=== PATIENT | male | born 1965 | race Caucasian/White ===

== ENCOUNTER 2024-02-05 07:42 | Inpatient (IN) | payer BC ==
[~2024-02-05] VITALS: Ht 180.3 cm; Wt 113.8 kg
[2024-02-05] MEDS ORDERED: NS 1,000 ML IV SCH ×2 (08:20→15:55)
[2024-02-05] MEDS ORDERED: Ondansetron HCl 2 MG / ML 2ML Vial IV ONE (08:20)
[2024-02-05] MEDS ORDERED: Ketorolac Tromethamine 15mg Vial IV ONE (08:20)
[2024-02-05] MEDS ORDERED: FentaNYL Citrate 50 MCG/ML 2 ML Injection IV ONE (09:00)
[2024-02-05 09:05] LABS: BASOPHILS ABSOLUTE AUTO 0.05 K/mm3 (0.00-0.23); BASOPHILS PERCENT AUTO 0 % (0-2); EOSINOPHILS ABSOLUTE AUTO 0.18 K/mm3 (0.00-0.68); EOSINOPHILS PERCENT AUTO 1 % (0-6); Hematocrit 38.9 % (37.0-53.0); Hemoglobin 13.5 g/dL (13.5-17.5); IMMATURE GRAN ABSOLUTE AUTO 0.09 K/mm3 (0.00-0.10); IMMATURE GRAN PERCENT AUTO 1 % (0-1); LYMPHOCYTES PERCENT AUTO 10 % (21-46); MONOCYTES ABSOLUTE AUTO 1.26 K/mm3 (0.16-1.47); MONOCYTES PERCENT AUTO 7 % (4-13); Mean Corpuscular HGB 30.7 pg (26.0-34.0); Mean Corpuscular HGB Conc 34.7 g/dL (31.5-36.5); Mean Corpuscular Volume 88 fL (80-100); Mean Platelet Volume 9.4 fL (9.1-12.4); NEUTROPHILS ABSOLUTE AUTO 14.59 K/mm3 (1.96-9.15); NEUTROPHILS PERCENT AUTO 81 % (41-73); Platelet Count 217 K/mm3 (150-400); RDW Coefficient Variation 13.4 % (11.7-14.2); RDW Standard Deviation 43.2 fL (35.1-46.3); White Blood Cell Count 17.97 K/mm3 (4.00-11.30)
[2024-02-05 09:52] LABS: Alanine Aminotransfer (ALT/SGP 39 U/L (12-78); Albumin/Globulin Ratio 1.1 (0.8-1.8); Alk Phos 71 U/L (50-136); Anion Gap 10 mmol/L (3-11); Aspartate Aminotrans (AST/SGOT 33 U/L (12-37); Bilirubin, Total 0.5 mg/dL (0.1-1.0); Blood Urea Nitrogen 17 mg/dL (8-24); Bun/Creatinine Ratio 16.7 (12.0-20.0); CO2, Blood 26 mmol/L (21-32); Calcium, Blood 9.1 mg/dL (8.5-10.1); Chloride, Blood 107 mmol/L (98-108); Creatinine, Blood 1.02 mg/dL (0.60-1.20); Globulin, Blood 3.7 g/dL (2.2-4.0); Glomerular Filtration Rate 85 (60-); Glucose, Blood 175 mg/dL (70-99); Potassium, Blood 3.7 mmol/L (3.5-5.5); Sodium, Blood 139 mmol/L (136-145); Total Protein, Blood 7.7 g/dL (6.4-8.2)
[2024-02-05] MEDS ORDERED: HYDROmorphone HCl/Pf 1MG SYR IV ONE ×5 (10:25→14:20)
[2024-02-05] MEDS ORDERED: Methocarbamol750 MG PO (10:51)
[2024-02-05] MEDS ORDERED: IBU800 M1 PO (10:51)
[2024-02-05] MEDS ORDERED: AMLODIPINE BESY10 MG PO (10:51)
[2024-02-05] MEDS ORDERED: OMEP20ER PO (10:52)
[2024-02-05] MEDS ORDERED: TRAZ50 PO (10:52)
[2024-02-05] MEDS ORDERED: ALLO300 PO (10:52)
[2024-02-05] MEDS ORDERED: COLCRYS0.6 M1 PO (10:52)
[2024-02-05] MEDS ORDERED: LOSA50 PO (10:52)
[2024-02-05] MEDS ORDERED: PLAVIX75 MG PO (10:52)
[2024-02-05] MEDS ORDERED: ATENOLOL25 MG PO (10:53)
[2024-02-05] MEDS ORDERED: Lactated Ringer's 1,000 ML IV ONE (11:30)
[2024-02-05] MEDS ORDERED: Methocarbamol 500 MG Tab PO PRN (14:10)
[2024-02-05] MEDS ORDERED: Ketorolac Tromethamine 15mg Vial IV PRN (14:15)
[2024-02-05] MEDS ORDERED: HYDROmorphone HCl/Pf 1MG SYR IV PRN (15:30)
[2024-02-05] MEDS ORDERED: Ondansetron HCl 2 MG / ML 2ML Vial IV PRN (15:35)
[2024-02-05] MEDS ORDERED: Acetaminophen 325 MG TABLET PO PRN (15:35)
[2024-02-05] MEDS ORDERED: Sennosides 8.6 MG Tab PO PRN (15:55)
[2024-02-05 16:03] VITALS: BP 127/89
[2024-02-05 16:13] LABS: Source, Urine Clean Catch
[2024-02-05 16:20] LABS: Appearance, Urine Clear (Clear); Bilirubin, Urine Neg (Neg); Blood, Urine Neg (Neg); Color, Urine Yellow (P-Yellow); Glucose Qualitative, Urine Neg (Neg); Ketones, Urine 1+ (Neg); Leukocyte Esterase, Urine Neg (Neg); Nitrite, Urine Neg (Neg); Protein, Urine 2+ (Neg); Specific Gravity, Urine 1.015 (1.003-1.022); Urobilinogen, Urine NORM (Normal)
--- NOTE | 2024-02-05 16:20 | NUR ---
ADMISSION NOTE MR CALLE WAS ADMITTED TO MEDICAL FROM THE ER AT 1445HRS WITH ACUTE RIGHT SIDED ABDOMINAL PAIN, SHARP IN NATURE. NO NAUSEA ON ADMISSION. HE LIVES WITH HIS , WALKS WITH A CANE WHEN HIS GOUT FLARES UP, HAS 40% HEARING LOSS, HEARING AIDS AT HOME. HE STOOD TO TRANSFER FROM STRETCHER INTO BED AND WAS HESITANT TRANSFERING. PT EDUCATED ON FALL PRECAUTIONS AND USE OF CALL LIGHT, NOT GETTING UP BY HIMSELF WHILE ON HIGH DOSES OF PAIN MEDICATIONS. PT VERBALISED UNDERSTANDING OF FALL PRECAUTIONS. VOIDED INTO URINAL AND URINE SAMPLE SENT TO LAB. DARK YELLOW URINE. IVF STARTED AT 75CC/HR. PT HAS HX COPD, DOES NOT USE OXYGEN AT HOME, QUIT SMOKING MANY YEARS AGO. BED LOW, CALL LIGHT IN REACH.
[2024-02-05 16:27] LABS: Bacteria Rare /hpf; Hyaline Casts 0-2 /lpf (0-2); Red Blood Cells, Urine 0-2 /hpf (0-2); Squamous Epithelial Cells Rare /hpf (Few); White Blood Cells, Urine 0-2 /hpf (0-5)
--- NOTE | 2024-02-05 18:10 | NUR ---
SHIFT SUMMARY PAIN ACROSS RIGHT ABDOMEN, HELPED A LITTLE WITH DILAUDID AND TOLADOL. NO NAUSEA. DRANK SIPS OF WATER BUT NOTICED INCREASED PAIN AFTER DRINKING. AMBULATED TO BR, REPORTED THAT IT'S TOO PAINFUL TO PUSH TO HAVE BM.
[2024-02-05 20:01] VITALS: BP 153/108
[2024-02-05] MEDS ORDERED: TraZODone HCl 50 MG Tab PO SCH (21:00)
[2024-02-05] MEDS ORDERED: Pantoprazole Sodium 20 MG Tab PO SCH (21:00)
[2024-02-05] MEDS ORDERED: Losartan Potassium 25 MG Tab PO SCH (21:00)
[2024-02-05] MEDS ORDERED: Atenolol 25 MG Tab PO SCH (21:00)
--- NOTE | 2024-02-06 04:28 | NUR ---
SHIFT SUMMARY 58 YR M ADMITTED ON 02/05/24. FULL CODE. PT IS HAVING A GREAT DEAL OF ABDOMINAL PAIN RATED AT 8-9. HE IS BEING MEDICATED W/ DILAUDID PER EMAR W/ FAIRLY GOOD RESULTS, ALTHOUGH THE RELEIF DOES NOT LAST LONG. HE STATED THAT HE WILL NOT TAKE ANY PILLS IT CAUSES MORE PAIN IN HIS STOMACH. 2100 MEDS WERE DOCUMENTED NOT GIVEN. HE IS ABLE TO AMBULATE TO THE BATHROOM W/ SBA TO HELP W/ IV POLE.
[2024-02-06 04:35] VITALS: BP 134/95
[2024-02-06 06:09] LABS: BASOPHILS ABSOLUTE AUTO 0.03 K/mm3 (0.00-0.23); BASOPHILS PERCENT AUTO 0 % (0-2); EOSINOPHILS PERCENT AUTO 0 % (0-6); Hematocrit 40.1 % (37.0-53.0); Hemoglobin 14.2 g/dL (13.5-17.5); IMMATURE GRAN ABSOLUTE AUTO 0.04 K/mm3 (0.00-0.10); IMMATURE GRAN PERCENT AUTO 0 % (0-1); LYMPHOCYTES ABSOLUTE AUTO 0.58 K/mm3 (0.84-5.20); LYMPHOCYTES PERCENT AUTO 4 % (21-46); MONOCYTES ABSOLUTE AUTO 0.58 K/mm3 (0.16-1.47); MONOCYTES PERCENT AUTO 4 % (4-13); Mean Corpuscular HGB 31.3 pg (26.0-34.0); Mean Corpuscular HGB Conc 35.4 g/dL (31.5-36.5); Mean Corpuscular Volume 88 fL (80-100); Mean Platelet Volume 9.6 fL (9.1-12.4); NEUTROPHILS ABSOLUTE AUTO 12.79 K/mm3 (1.96-9.15); NEUTROPHILS PERCENT AUTO 91 % (41-73); Platelet Count 198 K/mm3 (150-400); RDW Coefficient Variation 14.1 % (11.7-14.2); Red Blood Cell Count 4.54 M/mm3 (4.30-5.90); White Blood Cell Count 14.02 K/mm3 (4.00-11.30)
[2024-02-06 06:50] LABS: Alanine Aminotransfer (ALT/SGP 31 U/L (12-78); Albumin, Blood 3.6 g/dL (3.4-5.0); Alk Phos 62 U/L (50-136); Anion Gap 10 mmol/L (3-11); Aspartate Aminotrans (AST/SGOT 31 U/L (12-37); Bilirubin, Total 1.2 mg/dL (0.1-1.0); Blood Urea Nitrogen 14 mg/dL (8-24); CO2, Blood 25 mmol/L (21-32); Calcium, Blood 8.9 mg/dL (8.5-10.1); Chloride, Blood 108 mmol/L (98-108); Globulin, Blood 3.6 g/dL (2.2-4.0); Glomerular Filtration Rate 107 (60-); Glucose, Blood 134 mg/dL (70-99); Potassium, Blood 4.2 mmol/L (3.5-5.5); Sodium, Blood 139 mmol/L (136-145); Total Protein, Blood 7.2 g/dL (6.4-8.2); Triglycerides 260 mg/dL (30-160)
[2024-02-06] MEDS ORDERED: Magnesium Hydroxide Conc 10 ML UDC PO PRN (07:35)
[2024-02-06 08:34] VITALS: BP 115/72
[2024-02-06] MEDS ORDERED: Bisacodyl 10 MG Supp PR PRN (08:50)
[2024-02-06] MEDS ORDERED: Clopidogrel Bisulfate 75 MG Tab PO SCH (09:00)
[2024-02-06] MEDS ORDERED: Polyethylene Glycol 3350 17 gm PO SCH (09:00)
[2024-02-06] MEDS ORDERED: Allopurinol 300 MG Tab PO SCH (09:00)
[2024-02-06] MEDS ORDERED: Colchicine 0.6 MG TAB PO SCH (09:00)
[2024-02-06] MEDS ORDERED: Enoxaparin 40 MG/0.4 ML SYR SC SCH (09:00)
[2024-02-06] MEDS ORDERED: AmLODIPine Besylate 5 MG Tab PO SCH (09:00)
[2024-02-06] MEDS ORDERED: Lactulose 20 GM/30 ML UDC PO SCH (14:00)
[2024-02-06 16:38] VITALS: BP 127/96
--- NOTE | 2024-02-06 18:44 | NUR ---
DAYSHIFT SUMMARY Patient continues to report severe ABD pain, and severe pain from constipation. Several stool softners & laxatives administred. Pt reports diarrhea this afternoon. PRN IV for pain, patient reporting 10/10 t/o day. Vitals stable. Unable to tolerate PO meds. MD aware. IV fluids infusing.
[2024-02-06 20:58] VITALS: BP 144/90
[2024-02-07 02:27] VITALS: BP 134/83
--- NOTE | 2024-02-07 04:26 | NUR ---
SHIFT SUMMARY PATIENT HAD NO ACUTE CHANGES. DENIES CHEST PAIN, SOB, AND N/V. REPORTED ABDOMEN PAIN X TWO AND IV DILAUDID 2 MG GIVEN PER EVENT. PATIENT ABLE TO SLEEP WITH PAIN MANAGEMENT. VSS/AFEBRILE. PIV INTACT. NS INFUSING @ 75 mL/HR. SPOUSE PRESENT AT START OF SHIFT. CALL LIGHT IN REACH. BED IN LOWEST POSITION. WILL CONTINUE TO MONITOR UNTIL DAY SHIFT NURSE ASSUMES CARE.
[2024-02-07 07:29] VITALS: BP 127/90
[2024-02-07 09:06] LABS: BASOPHILS ABSOLUTE AUTO 0.07 K/mm3 (0.00-0.23); BASOPHILS PERCENT AUTO 0 % (0-2); EOSINOPHILS ABSOLUTE AUTO 0.02 K/mm3 (0.00-0.68); EOSINOPHILS PERCENT AUTO 0 % (0-6); Hematocrit 39.3 % (37.0-53.0); Hemoglobin 13.1 g/dL (13.5-17.5); IMMATURE GRAN ABSOLUTE AUTO 0.09 K/mm3 (0.00-0.10); IMMATURE GRAN PERCENT AUTO 1 % (0-1); LYMPHOCYTES ABSOLUTE AUTO 1.34 K/mm3 (0.84-5.20); LYMPHOCYTES PERCENT AUTO 7 % (21-46); MONOCYTES ABSOLUTE AUTO 1.43 K/mm3 (0.16-1.47); MONOCYTES PERCENT AUTO 8 % (4-13); Mean Corpuscular HGB 30.8 pg (26.0-34.0); Mean Corpuscular HGB Conc 33.3 g/dL (31.5-36.5); Mean Corpuscular Volume 92 fL (80-100); Mean Platelet Volume 9.8 fL (9.1-12.4); NEUTROPHILS ABSOLUTE AUTO 15.19 K/mm3 (1.96-9.15); NEUTROPHILS PERCENT AUTO 84 % (41-73); Platelet Count 213 K/mm3 (150-400); RDW Coefficient Variation 14.6 % (11.7-14.2); RDW Standard Deviation 49.1 fL (35.1-46.3); Red Blood Cell Count 4.26 M/mm3 (4.30-5.90); White Blood Cell Count 18.14 K/mm3 (4.00-11.30)
[2024-02-07 09:26] LABS: Albumin, Blood 3.1 g/dL (3.4-5.0); Albumin/Globulin Ratio 0.8 (0.8-1.8); Bilirubin, Total 1.2 mg/dL (0.1-1.0); Bun/Creatinine Ratio 24.6 (12.0-20.0); Calcium, Blood 8.4 mg/dL (8.5-10.1); Creatinine, Blood 1.3 mg/dL (0.60-1.20); Globulin, Blood 3.8 g/dL (2.2-4.0); Potassium, Blood 4.3 mmol/L (3.5-5.5); Total Protein, Blood 6.9 g/dL (6.4-8.2)
[2024-02-07] MEDS ORDERED: HYDROmorphone HCl 2 MG Tab PO PRN (11:35)
[2024-02-07] MEDS ORDERED: Lactulose 20 GM/30 ML UDC PO SCH (11:35)
[2024-02-07] MEDS ORDERED: HYDROmorphone HCl 2 MG Tab PO ONE (11:35)
[2024-02-07] MEDS ORDERED: NS 1,000 ML IV SCH ×2 (11:35→11:55)
[2024-02-07 15:35] VITALS: BP 131/89
--- NOTE | 2024-02-07 16:39 | NUR ---
SHIFT SUMMARY: PATIENT A/OX4, PLEASANT AND COOPERATIVE c CARE. PATIENT DENIES CP/PRESSURE, SOB, N/V AND DIZZINESS. PATIENT CONTINUES TO REPORTS PAIN 5-10/10 TO ABDOMEN AND CONSTIPATED. PATIENT MEDICATED c PRN PAIN MEDS c GOOD EFFECT. PATIENT MEDICATED c SCHEDULED AND PRN MEDS FOR CONSTIPATION. PATIENT REPORTS OT "SMALL HARD BM AND PASSING MORE GAS". PATIENT TOLERATING CL DIETS. PATIENT AMBULATES X1 IN HALLWAYS AND IN ROOM T/O SHIFT. PATIENT SHOWERED AND LINEN CHANGED TODAY. PIV TO RAC INFUSING NS AT 125 MLS/HR. VITAL SIGNS REVIEWED. CALL LIGHT IN REACH.
[2024-02-07 19:42] VITALS: BP 150/94
[2024-02-08 02:24] VITALS: BP 150/103
--- NOTE | 2024-02-08 04:20 | NUR ---
SHIFT SUMMARY PATIENT AXOX 4 AND INDEPENDENT IN ROOM. REPORTED ABDOMEN PAIN ABOUT EVERY THREE HOURS. IV DILAUDID 2 MG GIVEN WITH GOOD EFFECT. REFUSING PO DILAUDID AFTER REPORTING MADE HIS STOMACH UPSET ON DAY SHIFT. BOWEL CARE MEDS GIVEN PER EMAR. PATIENT REPORTING GAS AND SMALL BM. DENIES CHEST PAIN, SOB, AND N/V. VSS/AFEBRILE. PIV REMAINS INTACT. NS INFUSING @ 125 mL/HR 2 OF 3 BAGS GIVEN. SLEPT WHEN PAIN MANAGED. SPOUSE PRESENT FIRST PART OF SHIFT. CALL LIGHT IN REACH. BED IN LOWEST POSITION. WILL CONTINUE TO MONITOR UNTIL DAY SHIFT NURSE ASSUMES CARE.
[2024-02-08 05:31] LABS: Hemoglobin 11.8 g/dL (13.5-17.5); Mean Corpuscular HGB 30.6 pg (26.0-34.0); Mean Corpuscular HGB Conc 33.7 g/dL (31.5-36.5); Mean Corpuscular Volume 91 fL (80-100); Mean Platelet Volume 9.4 fL (9.1-12.4); Platelet Count 179 K/mm3 (150-400); RDW Coefficient Variation 13.9 % (11.7-14.2); RDW Standard Deviation 45.9 fL (35.1-46.3); Red Blood Cell Count 3.85 M/mm3 (4.30-5.90); White Blood Cell Count 13.76 K/mm3 (4.00-11.30)
[2024-02-08 05:59] LABS: Bun/Creatinine Ratio 28.3 (12.0-20.0); Calcium, Blood 8.8 mg/dL (8.5-10.1); Creatinine, Blood 0.78 mg/dL (0.60-1.20); Potassium, Blood 4.1 mmol/L (3.5-5.5)
[2024-02-08 06:05] LABS: BAND PERCENT MAN 20 % (0-8); BASOPHILS PERCENT MAN 0 % (0-2); EOSINOPHILS PERCENT MAN 0 % (0-6); LYMPHOCYTES ABSOLUTE MAN 0.68 K/mm3 (0.84-5.20); LYMPHOCYTES PERCENT MAN 5 % (21-46); METAMYELOCYTE ABSOLUTE MAN 0.13 K/mm3 (0.00-0.00); METAMYELOCYTE PERCENT MAN 1 % (0-0); MONOCYTES PERCENT MAN 8 % (4-13); NEUTROPHILS ABSOLUTE MAN 11.83 K/mm3 (1.96-9.15); SEG NEUTROPHILS PERCENT MAN 66 % (41-73); TOTAL CELLS COUNTED 100
--- NOTE | 2024-02-08 07:33 | NUR ---
BEGINNING OF SHIFT NOTE: RECEIVED REPORTS FROM NOC RNTUSHAR. PER TUSHAR PATIENT DECLINE TO TAKE PO DILAUDID ALL SHIFT, PATIENT REPORTS THAT PO DILAUDID MAKES HIS STOMACH UPSET. ON MY ENCOUNTER THIS AM, PATIENT REPORTS DID NOT HAVE BOWEL MOVEMENT ALL NIGHT AND STILL FELLING CONSTIPATED. PATIENT MEDICATED c PRN PO PAIN MEDS, SCHEDULED LACTULOSE AND PRN MOM AND SENOKOT FOR CONSTIPATION. PATIENT A/OX4, APPEARS UNCOMFORTABLE, SENSATIONS AND STRENGTH ARE INTACT TO ALL EXTREMITIES. PATIENT DENIES N/V, SOB, CP/CHEST DISCOMFORT. PATIENT SITTING ON THE EOB c CALL LIGHT IN REACH. WILL CONTINUE TO REPORTS PATIENT CONDITION T/O SHIFT.
[2024-02-08 07:35] VITALS: BP 168/86
[2024-02-08 07:36] VITALS: BP 168/86
--- NOTE | 2024-02-08 10:17 | NUR ---
NOTE: CALLED DR. RICHMOND TO REPORTS UPDATES ON PATIENT CONDITION. PATIENT STILL NOT ABLE TO HAVE BM. PATIENT CONTINUES TO REPORTS PAIN AND CONSITATION. SPOUSE AT BEDSIDE, REPORTS CONCERNED AND ASKED THIS RN IF WE CAN DO A SCAN TO PATIENT ABDOMEN. NOTIFIED DR. RICHMOND REGARDING THIS ISSUES. RECEIVED ORDER TO HAVE AN XRAY TO ABDOMEN.
--- NOTE | 2024-02-08 14:13 | NUR ---
LEFT UNIT NOTE: PATIENT LEFT THE ROOM AT THIS TIME TO IMAGING.
[2024-02-08 15:19] VITALS: BP 163/95
--- NOTE | 2024-02-08 16:25 | NUR ---
NOTE: CALLED DR. RICHMOND REGARDING PATIENT XRAY RESULT. RECEIVED ORDER TO HOLD 1630 SCHEDULED LACTULOSE AND GIVE FLEET ENEMA NOW FOR CONSTIPATION.
[2024-02-08] MEDS ORDERED: Sod Phosphate/Sod Biphosphate 132 ML BTL PR ONE (16:30)
--- NOTE | 2024-02-08 18:13 | NUR ---
SHIFT SUMMARY: PATIENT MEDICATED c OT DOSE OF FLEET ENEMA AT 1652. PATIENT REPORTS 2 LARGE UNFORMED BROWN BM. PATIENT CONTINUES TO REPORTS PAIN 10/ TO ABDOMEN, MEDICATED c PRN IV/PO PAIN MEDS c MOD EFFECT. PATIENT AMBULATES IN THE HALLWAYS ON MULTIPLE OCCASION THIS SHIFT, TOLERATIND WELL. PATIENT A/OX4, PLEASANT AND COOPERATIVE c CARE, RESTING ON/OFF IN BED T/O SHIFT. VITAL SIGNS REVIEWED. FIBRILLE c A MAX TEMP OF 99.8 THIS SHIFT. RESP EVEN AND UNLABORED, DENIES N/V, CP/PRESSURE AND DIZZINESS. PIV TO RAC INFUSING NS AT 125 MLS/HR. CALL LIGHT IN REACH.
[2024-02-08 19:43] VITALS: BP 147/88
[2024-02-09 02:17] VITALS: BP 156/97
--- NOTE | 2024-02-09 05:47 | NUR ---
ASSUMED CARE AT 299 PT. REPORTS 10/10WORST PAIN FROM SIDES, RADIATING TOWARDS NAVEL. MEDICATED WITH IV DILAUDID ORDERED. PT. RESTING IN BED, RR EVEN, UNLABORED. NO ACUTE CHANGES REPORTED/NOTED DURING [phone] ON THIS SHIFT. BED AT THE LOWEST POSITION, CALL LIGHT IN REACH. PT. IS ABLE TO MAKE HIS NEEDS KNOWN, A&O X4, PLEASANT, COOPERATIVE WITH CARE.
[2024-02-09 07:33] VITALS: BP 145/93
[2024-02-09] MEDS ORDERED: NS 1,000 ML IV SCH (08:30)
[2024-02-09 09:22] LABS: Hemoglobin 11.2 g/dL (13.5-17.5); Mean Corpuscular HGB 30.9 pg (26.0-34.0); Mean Corpuscular HGB Conc 33.9 g/dL (31.5-36.5); Mean Corpuscular Volume 91 fL (80-100); Mean Platelet Volume 9.7 fL (9.1-12.4); Platelet Count 193 K/mm3 (150-400); RDW Coefficient Variation 13.6 % (11.7-14.2); RDW Standard Deviation 45.8 fL (35.1-46.3); Red Blood Cell Count 3.62 M/mm3 (4.30-5.90); White Blood Cell Count 12.12 K/mm3 (4.00-11.30)
[2024-02-09 10:05] LABS: BAND PERCENT MAN 16 % (0-8); BASOPHILS PERCENT MAN 0 % (0-2); EOSINOPHILS ABSOLUTE MAN 0.12 K/mm3 (0.00-0.68); EOSINOPHILS PERCENT MAN 1 % (0-6); LYMPHOCYTES ABSOLUTE MAN 0.72 K/mm3 (0.84-5.20); LYMPHOCYTES PERCENT MAN 6 % (21-46); MONOCYTES PERCENT MAN 5 % (4-13); MYELOCYTE ABSOLUTE MAN 0.12 K/mm3 (0.00-0.00); MYELOCYTE PERCENT MAN 1 % (0-0); NEUTROPHILS ABSOLUTE MAN 10.54 K/mm3 (1.96-9.15); SEG NEUTROPHILS PERCENT MAN 71 % (41-73); TOTAL CELLS COUNTED 100
[2024-02-09] MEDS ORDERED: Sod Phosphate/Sod Biphosphate 132 ML BTL PR ONE (10:20)
[2024-02-09] MEDS ORDERED: HYDROmorphone HCl/Pf 1MG SYR IV PRN (13:20)
[2024-02-09 15:35] VITALS: BP 169/103
--- NOTE | 2024-02-09 19:10 | NUR ---
PT IS ALERT AND ORIENTED X4. INDEPENDENT IN THE ROOM. BOWEL CARE AND PAIN CONTROL CONTINUED. PAIN CONTROLLED WITH CURRENT MEDICATION REGIMEN, NOT EATING WELL. PO INTAKE ENCOURAGED. LOOSE BOWEL X3 AFTER ENEMA. FAMILY AT BEDSIDE. ABLE TO MAKE NEEDS KNOWN
[2024-02-09 19:57] VITALS: BP 147/93
[2024-02-10 02:12] VITALS: BP 141/91
[2024-02-10 05:45] LABS: BASOPHILS ABSOLUTE AUTO 0.09 K/mm3 (0.00-0.23); BASOPHILS PERCENT AUTO 1 % (0-2); EOSINOPHILS ABSOLUTE AUTO 0.09 K/mm3 (0.00-0.68); EOSINOPHILS PERCENT AUTO 1 % (0-6); Hematocrit 35.2 % (37.0-53.0); Hemoglobin 12.3 g/dL (13.5-17.5); IMMATURE GRAN PERCENT AUTO 3 % (0-1); LYMPHOCYTES ABSOLUTE AUTO 1.33 K/mm3 (0.84-5.20); LYMPHOCYTES PERCENT AUTO 9 % (21-46); MONOCYTES ABSOLUTE AUTO 1.83 K/mm3 (0.16-1.47); MONOCYTES PERCENT AUTO 12 % (4-13); Mean Corpuscular HGB 31.6 pg (26.0-34.0); Mean Corpuscular HGB Conc 34.9 g/dL (31.5-36.5); Mean Corpuscular Volume 91 fL (80-100); Mean Platelet Volume 9.7 fL (9.1-12.4); NEUTROPHILS ABSOLUTE AUTO 11.98 K/mm3 (1.96-9.15); NEUTROPHILS PERCENT AUTO 76 % (41-73); NRBC ABSOLUTE 0.04 K/mm3 (0.00-0.02); NRBC Auto 0.3 /100 WBC (0.0-0.2); Platelet Count 233 K/mm3 (150-400); RDW Coefficient Variation 13.7 % (11.7-14.2); RDW Standard Deviation 44.8 fL (35.1-46.3); Red Blood Cell Count 3.89 M/mm3 (4.30-5.90); White Blood Cell Count 15.72 K/mm3 (4.00-11.30)
[2024-02-10 06:19] LABS: Bun/Creatinine Ratio 24.2 (12.0-20.0); Calcium, Blood 8.9 mg/dL (8.5-10.1); Creatinine, Blood 0.58 mg/dL (0.60-1.20); Potassium, Blood 3.6 mmol/L (3.5-5.5)
--- NOTE | 2024-02-10 06:49 | NUR ---
Shift Summary Pt very painful t/o shift requiring 2mg Dilaudid every 2 hours as needed for severe pain. Pt states he was able to have multiple BM's over the last 36 hours thanks to the bowel care. He is still on a clear liquid diet. Independent in the room, able to make needs known.
[2024-02-10 07:18] VITALS: BP 150/95
[2024-02-10] MEDS ORDERED: OxyCODONE HCL 5 MG TAB PO PRN (10:25)
[2024-02-10] MEDS ORDERED: Ketorolac Tromethamine 15mg Vial IV PRN (10:35)
[2024-02-10] MEDS ORDERED: Methocarbamol 500 MG Tab PO SCH (14:00)
[2024-02-10 15:56] VITALS: BP 153/99
--- NOTE | 2024-02-10 16:40 | NUR ---
SHIFT SUMMARY Pt remains A&Ox3 this shift. VSS. Resp even nonlabored on RA. Up to bathroom independently. Abdominal pain managed with IV Toradol and PO Oxy. NS at 100ml/hr. Diet advanced to full liquid diet with lactose intolerance noted. Pt resting comfortably without c/o at this time. Will continue to monitor.
[2024-02-10 19:26] VITALS: BP 151/90
[2024-02-10] MEDS ORDERED: AmLODIPine Besylate 5 MG Tab PO SCH (21:00)
[2024-02-11 05:22] VITALS: BP 138/81
[2024-02-11 06:57] LABS: Bun/Creatinine Ratio 17.9 (12.0-20.0); Calcium, Blood 8.6 mg/dL (8.5-10.1); Creatinine, Blood 0.73 mg/dL (0.60-1.20); Potassium, Blood 3.3 mmol/L (3.5-5.5)
--- NOTE | 2024-02-11 07:27 | NUR ---
Shift Summary No acute changes, pt pain managed well with Q6 Toradol and Q4 5mg Oxycodone. Pt was able to sleep well t/o most of the night. Pt rcving NS @ 100 ml/hr. He is AOx4, independent in the room.
[2024-02-11] MEDS ORDERED: Potassium Chloride 20 MEQ TabCR PO ONE (07:30)
[2024-02-11 07:48] VITALS: BP 130/92
[2024-02-11] MEDS ORDERED: OXAYDO5 M1 PO (14:36)
[2024-02-11] MEDS ORDERED: MIRALAX17 GM PO (14:36)
[2024-02-11] MEDS ORDERED: Robaxin750 MG PO (15:51)
[2024-02-11 16:04] VITALS: BP 156/96
--- NOTE | 2024-02-11 16:28 | NUR ---
DISCHARGE NOTE- PT WAS GIVEN VERBAL AND WRITTEN DISCHARGE INSTRUCTIONS AND ACKNOWLEDGED UNDERSTANDING OF THEM. HARD COPY SCRIPT PROVIDED BY FOR OXY FOR PAIN MANAGEMENT. PT MEDICATED FOR PAIN AT THE TIME OF DISCHARGE. PT HAD A DR NOTE FOR WORK PER HIS REQUEST. IV DC'D PRIOR TO DISCHARGE, PT ESCORTED OUT VIA WC BY THE PIE BOTTOMER, NO S&S OF DISTRESS NOTED AT THE TIME OF DISCHARGE.
== END 2024-02-11 16:28 | disposition home or self-care (01) | DRG 438 ==
LOC: ER 07:42 → MEDS 07:43 → ER 07:43 → MEDS 07:43
PROVIDERS: Student in an Organized Health Care Education/Training Program; ADMIT Internal Medicine
DX: K85.90 Acute pancreatitis without necrosis or infection, unspecified (principal); R65.11 Systemic inflammatory response syndrome (SIRS) of non-infectious origin with acute organ dysfunction; N17.9 Acute kidney failure, unspecified; M54.50 Low back pain, unspecified; G89.29 Other chronic pain; I10 Essential (primary) hypertension; R25.2 Cramp and spasm; K59.09 Other constipation; M10.9 Gout, unspecified; R73.03 Prediabetes; E78.2 Mixed hyperlipidemia; E66.9 Obesity, unspecified; G47.00 Insomnia, unspecified; Z90.49 Acquired absence of other specified parts of digestive tract; Z87.891 Personal history of nicotine dependence; Z79.02 Long term (current) use of antithrombotics/antiplatelets; Z79.899 Other long term (current) drug therapy; Z68.28 Body mass index [BMI] 28.0-28.9, adult
CPT/HCPCS: 36415; 74018; 74177; 80048; 80053; 81001; 82330; 83605; 83690; 83735; 84478; 85025; 93005; 93010; 96361; 96374-59; 96375; 96376; 99285-25; A9270; C9113; G0378; J1170; J1650; J1885; J2405; J3010; J7030; J7120; Q9967

== ENCOUNTER → 2024-12-22 | Outpatient (CLI) | payer BC ==
[~2024-12-22] MED LIST: ALLO300 PO; AMLODIPINE BESY10 MG PO; ATENOLOL25 MG PO; COLCRYS0.6 M1 PO; IBU800 M1 PO; LOSA50 PO; MIRALAX17 GM PO; Methocarbamol750 MG PO; OMEP20ER PO; OXAYDO5 M1 PO; PLAVIX75 MG PO; Robaxin750 MG PO; TRAZ50 PO
== END ==
LOC: LAB SHORT 13:24 → LAB 13:24
DX: M10.3 Gout due to renal impairment (principal)
CPT/HCPCS: 84550